=== PATIENT | female | born 1980 | race Caucasian/White ===

== ENCOUNTER 2024-01-18 00:31 | Inpatient (IN) | payer OTHER ==
[2024-01-18] VITALS (23 sets, daily range): BP systolic 93–113; BP diastolic 56–71; PULSE 69–105; RESP 12–24; TEMP 97.4–98.6; O2SAT 92–100
[~2024-01-18] VITALS: Ht 157.5 cm; Wt 77.3 kg
[2024-01-18] MEDS ORDERED: morphine 2 MG/ML inj. syringe IV PRN ×2 (01:10→12:15)
[2024-01-18] MEDS: ondansetron/PF 4mg/2ml inj IV ONE (01:39)
[2024-01-18] MEDS: morphine 4 MG/ML inj SYRINge IV ONE (01:39)
[2024-01-18] MEDS: dextrose 5%-1/2 normal saline 1,000 ML IV ONE (01:42)
[2024-01-18 01:54] LABS: BASOPHILS % (AUTO) 0.2 % (0-1); EOSINOPHILS % (AUTO) 0.3 % (0-6); HEMATOCRIT 41.6 % (35.0-45.0); HEMOGLOBIN 14.1 g/dl (12.0-16.0); LYMPHOCYTES # (AUTO) 1.8 X10'3 (1.1-4.8); LYMPHOCYTES % (AUTO) 14.4 % (21-51); MEAN CORPUSCULAR HEMOGLOBIN 32.5 PG (27.0-31.0); MEAN CORPUSCULAR VOLUME 95.5 FL (78-98); MEAN PLATELET VOLUME 8.2 FL (7.4-10.4); MONOCYTES # (AUTO) 0.6 X10'3 (0-0.9); NEUTROPHILS # (AUTO) 10.1 X10'3 (1.8-7.7); NEUTROPHILS % (AUTO) 80.1 % (42-75); PLATELET COUNT 242 X10'3 (140-440); RED BLOOD COUNT 4.35 X10'6 (4.20-5.60); RED CELL DISTRIBUTION WIDTH 13.2 % (11.5-14.5); WHITE BLOOD COUNT 12.6 X10'3 (4.5-11.0)
[2024-01-18 01:59] LABS: ALBUMIN 3.6 G/DL (3.4-5.0); ANION GAP 7 (8-16); BLOOD UREA NITROGEN 7 MG/DL (7-18); BUN/CREATININE RATIO 8.4 (10.0-20.0); CALCIUM 9.1 MG/DL (8.5-10.1); CHLORIDE 106 MMOL/L (99-107); CREATININE 0.83 MG/DL (0.40-0.90); GLUCOSE 104 MG/DL (70-104); POTASSIUM 3.6 MMOL/L (3.5-5.1); SODIUM 141 MMOL/L (135-145); TOTAL CARBON DIOXIDE 27.7 MMOL/L (24-32); eCRCL 69 ML/MIN; eGFR 75 ML/MIN
[2024-01-18] MEDS ORDERED: GABA-530 PO (02:08)
[2024-01-18] MEDS ORDERED: DULO20CA50 PO (02:08)
[2024-01-18] MEDS ORDERED: SEMA1PEN3 SUBCUT (02:08)
[2024-01-18] MEDS: diatr meglu/diatrizoate 30ml oral sol.-(3 dose) bottle PO SCH (03:16)
[2024-01-18] MEDS: ringers solution, lacted 1,000 ML IV SCH ×2 (03:22→12:15)
[2024-01-18] MEDS: piperacillin/tazo 3.375gm/50ml 50 ML IV SCH (03:30)
[2024-01-18] MEDS ORDERED: potassium Cl 40MEQ/1/2NS 520ml 520 ML IV PRN (03:35)
[2024-01-18] MEDS ORDERED: magnesium sulf-water 2g/50mL 50 ML IV PRN (03:35)
[2024-01-18] MEDS ORDERED: acetaminophen 325mg tablet PO PRN (03:35)
[2024-01-18] MEDS ORDERED: magnesium hydroxide 30ml (MOM) UD suspension PO PRN (03:35)
[2024-01-18] MEDS ORDERED: magnesium sulf-water 4G/100mL 100 ML IV PRN (03:35)
[2024-01-18] MEDS ORDERED: mag hydrox/Alum hydrox/simeth 30ml oral suspension PO PRN (03:35)
[2024-01-18] MEDS ORDERED: magnesium Cl slow-release 64mg tablet PO PRN (03:35)
[2024-01-18] MEDS ORDERED: potassium Cl 20 mEq SR tablet PO PRN (03:35)
[2024-01-18 03:46] LABS: HCG SERUM QL NEGATIVE
[2024-01-18 03:51] LABS: APTT 29 SECONDS (22-32); PROTHROMBIN TIME 10.8 SECONDS (9.0-12.0)
[2024-01-18] MEDS: morphine 2 MG/ML inj. syringe IV PRN (05:52)
[2024-01-18] MEDS: docusate sod 100mg capsule PO SCH (06:30)
[2024-01-18] MEDS: K and/or MAG REPLACEMENT MC SCH (08:00)
[2024-01-18] MEDS: BUPIVAcaine 2.5mg/ml inj 50ml vial (contains preservative) ONE (10:23)
[2024-01-18] MEDS ORDERED: sevoflurane 250ml liquid IH ONE (10:56)
[2024-01-18] MEDS: BUPIVAcaine 2.5mg/ml inj 50ml vial (contains preservative) SQ ONE (11:00)
[2024-01-18] MEDS: famotidine/PF 10 mg/ml inj IV ONE (11:07)
[2024-01-18] MEDS ORDERED: midazolam 1 mg/ML 2ml injection ONE (11:08)
[2024-01-18] MEDS ORDERED: fentaNYL /PF 50mcg/ml 5ml ampule ONE (11:18)
[2024-01-18] MEDS ORDERED: propofol inj 20 ML IV ONE (11:27)
[2024-01-18] MEDS ORDERED: ceFOXitin 1000 MG inj ONE ×3 (11:27)
[2024-01-18] MEDS ORDERED: LIDOcaine 2% (20mg/ml) 5ml vial ONE (11:27)
[2024-01-18] MEDS ORDERED: ondansetron/PF 4mg/2ml inj ONE (11:27)
[2024-01-18] MEDS ORDERED: dexamethasone sod phosphate 4mg/ml inj. ONE (11:27)
[2024-01-18] MEDS ORDERED: rocuronium 10mg/ml inj IV ONE (11:27)
[2024-01-18] MEDS ORDERED: meperidine/PF 25mg/ml syringe IV PRN (12:15)
[2024-01-18] MEDS ORDERED: morphine 4 MG/ML inj SYRINge IV PRN (12:15)
[2024-01-18] MEDS ORDERED: hydrALAZINE 20mg/ml inj. IV PRN (12:15)
[2024-01-18] MEDS ORDERED: HYDROmorphone/PF 0.2 MG/ML SYRINGE IV PRN ×2 (12:15)
[2024-01-18] MEDS ORDERED: labetalol 20mg/4ml (5mg/ml) syringe IV PRN (12:15)
[2024-01-18] MEDS ORDERED: proCHLORperazine 10 MG/2 ml inj IV PRN (12:15)
[2024-01-18] MEDS ORDERED: glycopyrrolate 0.2mg/ml inj ONE (12:18)
[2024-01-18] MEDS ORDERED: neostigmine methylsulfate 1 MG/ML 10ml vial ONE (12:18)
[2024-01-18] MEDS: ondansetron/PF 4mg/2ml inj IV PRN ×2 (12:44→14:02)
[2024-01-18] MEDS ORDERED: naloxone 0.4 mg/ml inj IV PRN (12:50)
[2024-01-18] MEDS: acetaminophen 1,000mg/100ml IV 100 ML IV ONE (13:08)
[2024-01-18] MEDS: ketorolac trometh. 30mg/ml inj. IM ONE (13:10)
[2024-01-18] MEDS: metoclopramide 5 mg/ml inj IV ONE (13:10)
[2024-01-19] MEDS: gabapentin 300mg capsule PO SCH (04:14)
[2024-01-19 05:00] VITALS: BP 95/53; PULSE 76; RESP 16; TEMP 97.8; O2SAT 99
[2024-01-19] MEDS: HYDROcodone/acetaminophen 5mg/325mg tablet PO PRN (05:49)
[2024-01-19 06:07] LABS: MAGNESIUM 1.5 MG/DL (1.5-2.4); POTASSIUM 3.4 MMOL/L (3.5-5.1)
[2024-01-19 08:12] VITALS: RESP 16
[2024-01-19] MEDS: potassium Cl 20 mEq SR tablet PO PRN (08:16)
[2024-01-19 10:37] VITALS: BP 95/63; PULSE 83; RESP 15; TEMP 97.8; O2SAT 100
[2024-01-19] MEDS ORDERED: duloxetine 20mg capsule.DR PO SCH (21:00)
== END 2024-01-19 14:38 | disposition home or self-care (01) | DRG 399 ==
LOC: ER 00:33 → UNDOADMIN 03:41 → ED HOLD 03:41 → SUR 3N 04:35 → ED HOLD 04:35 → UNDODISIN 01-19 14:38
PROVIDERS: ADMIT Internal Medicine Critical Care Medicine; ATTEND Internal Medicine
PROC: 8E0W4CZ Robotic Assisted Procedure of Trunk Region, Percutaneous Endoscopic Approach (ICD-10-PCS; 2024-01-18)
PROC: 0DTJ4ZZ Resection of Appendix, Percutaneous Endoscopic Approach (ICD-10-PCS; principal; 2024-01-18 11:02)
DX: K35.80 Unspecified acute appendicitis (principal); M79.7 Fibromyalgia; Z91.040 Latex allergy status
CPT/HCPCS: 99291; Z7506; Z7508; 36415; 80048; 82948; 83735; 84132; 84703; 85025; 85610; 85730; 87081; 93005; A4215; A4314; A4615; A4618; A6402; A7000; G0378; J0131; J0694; J1100; J1885; J2250; J2270; J2405; J2543; J2704; J2710; J2765; J3010; J3490; J7120; Q9963